=== PATIENT | male | born 1990 | race Caucasian/White ===

== ENCOUNTER 2017-10-10 23:31 | Emergency (ER) | payer SELFPAY ==
--- NOTE | 2017-10-10 23:36 | ER Report ---
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 Patient's not followed up with cardiology in many years. His previous care was in [place]. Presents ambulatory to the ER with 2 days of chest congestion and difficulty breathing. Patient states he Vapes THC. REVIEW OF SYSTEMS: Respiratory: As above Cardiovascular: As above. Gastrointestinal: No vomiting, no abdominal pain. Musculoskeletal: No back pain. Allergies: Coded Allergies: No Known Allergies (Verified Allergy, Unknown, 10/10/17) Home Meds Active Scripts Amoxicillin (AMOXICILLIN) 875 Mg Tablet, 1 TAB PO Q12H for infection, #10 TAB Prov:BRITTANY CAO DO 10/11/17 Reported Medications Aspirin (ASPIR 81) 81 Mg Tablet., 81 MG PO QDAY, TAB 10/10/17 Reviewed Nurses Notes: Yes Old Medical Records Reviewed: Yes Constitutional Vital Sign - Last 24 Hours 10/10/17 10/10/17 10/10/17 10/11/17 23:34 23:34 23:40 00:05 Temp 97.5 Pulse 89 80 80 Resp 15 14 12 B/P (MAP) 170/107 170/101 (124) 152/77 (102) Pulse Ox 85 85 92 O2 Delivery Room Air Room Air Nasal Cannula O2 Flow Rate 2.0 2 10/11/17 10/11/17 10/11/17 00:10 00:20 00:40 Pulse 82 78 Resp 12 9 B/P (MAP) 113/74 (87) 105/62 (76) Pulse Ox 90 85 O2 Delivery Nasal Cannula Room Air O2 Flow Rate 2 Physical Exam Vital signs stable, afebrile, pulse ox 85% on room air General Appearance: The patient is alert, has no immediate need for airway protection and no current signs of toxicity. Slightly pale appearing, skin warm and dry HEENT: Pupils equal and round no injection. Oropharynx without redness or exudate, mucous. Membranes are moist Respiratory: Chest is non tender, lungs are clear to auscultation. Cardiac: regular rate and rhythm, blowing heart murmur at the left sternal border, well-healed surgical car Gastrointestinal: Abdomen is soft and non tender, no masses, bowel sounds normal. Musculoskeletal: Neck: Neck is supple and non tender. No JVD Extremities have full range of motion and are non tender. No edema, no calf tenderness Skin: No rashes or lesions. DIFFERENTIAL DIAGNOSIS: After history and physical exam differential diagnosis was considered for chest pain including but not limited to myocardial ischemia, pericarditis pulmonary embolus, chest wall pain, pleural inflammation and pulmonary infectious causes. Additionally,shortness of breath including but not limited to pulmonary infectious process, COPD, asthma, pulmonary embolus and congestive heart failure. Medical Decision Making Data Points Result Diagram: 10/10/17 2342 10/10/17 2342 Laboratory Hematology Test 10/10/17 23:42 10/11/17 00:51 Red Blood Count 6.36 M/uL (4.00-5.60) Mean Corpuscular Volume 90.1 fL (80.0-96.0) Mean Corpuscular Hemoglobin 31.1 pg (26.0-33.0) Mean Corpuscular Hemoglobin Concent 34.5 g/dL (32.0-36.0) Red Cell Distribution Width 14.3 % (11.5-14.5) Mean Platelet Volume 10.6 fL (7.2-11.1) Neutrophils (%) (Auto) 81.5 % (39.4-72.5) Lymphocytes (%) (Auto) 10.8 % (17.6-49.6) Monocytes (%) (Auto) 7.1 % (4.1-12.4) Eosinophils (%) (Auto) 0.2 % (0.4-6.7) Basophils (%) (Auto) 0.4 % (0.3-1.4) Nucleated RBC Relative Count (auto) 0.0 /100WBC Neutrophils # (Auto) 9.6 K/uL (2.0-7.4) Lymphocytes # (Auto) 1.3 K/uL (1.3-3.6) Monocytes # (Auto) 0.8 K/uL (0.3-1.0) Eosinophils # (Auto) 0.0 K/uL (0.0-0.5) Basophils # (Auto) 0.1 K/uL (0.0-0.1) Nucleated RBC Absolute Count (auto) 0.00 K/uL Prothrombin Time 13.6 seconds (12.0-14.4) Prothromb Time International Ratio 1.04 Activated Partial Thromboplast Time 29 seconds (23-35) D-Dimer Quantitative (PE/DVT) < 0.27 ug/ml (0-0.50) Sodium Level 144 mmol/L (137-145) Potassium Level 3.7 mmol/L (3.5-5.0) Chloride Level 104 mmol/L (98-107) Carbon Dioxide Level 23 mmol/L (22-30) Blood Urea Nitrogen 17 mg/dl (9-21) Creatinine 1.00 mg/dl (0.66-1.25) Glomerular Filtration Rate Calc > 60.0 Random Glucose 101 mg/dl (75-110) Calcium Level 10.1 mg/dl (8.4-10.2) Total Bilirubin 1.2 mg/dl (0.2-1.3) Aspartate Amino Transf (AST/SGOT) 32 U/L (0-35) Alanine Aminotransferase (ALT/SGPT) 49 U/L (0-56) Alkaline Phosphatase 69 U/L (0-126) Troponin I 0.017 ng/ml B-Type Natriuretic Peptide 103 pg/ml (0-100) Total Protein 9.4 g/dl (6.3-8.2) Albumin 5.7 g/dl (3.5-5.0) Digoxin Level < 0.4 ng/ml Digoxin Last Dose Date unk Digoxin Last Dose Time unk Chemistry Test 10/10/17 23:42 10/11/17 00:51 White Blood Count 11.8 k/uL (4.5-11.0) Red Blood Count 6.36 M/uL (4.00-5.60) Hemoglobin 19.8 g/dL (14.0-18.0) Hematocrit 57.3 % (42.0-52.0) Mean Corpuscular Volume 90.1 fL (80.0-96.0) Mean Corpuscular Hemoglobin 31.1 pg (26.0-33.0) Mean Corpuscular Hemoglobin Concent 34.5 g/dL (32.0-36.0) Red Cell Distribution Width 14.3 % (11.5-14.5) Platelet Count 184 K/uL (150-450) Mean Platelet Volume 10.6 fL (7.2-11.1) Neutrophils (%) (Auto) 81.5 % (39.4-72.5) Lymphocytes (%) (Auto) 10.8 % (17.6-49.6) Monocytes (%) (Auto) 7.1 % (4.1-12.4) Eosinophils (%) (Auto) 0.2 % (0.4-6.7) Basophils (%) (Auto) 0.4 % (0.3-1.4) Nucleated RBC Relative Count (auto) 0.0 /100WBC Neutrophils # (Auto) 9.6 K/uL (2.0-7.4) Lymphocytes # (Auto) 1.3 K/uL (1.3-3.6) Monocytes # (Auto) 0.8 K/uL (0.3-1.0) Eosinophils # (Auto) 0.0 K/uL (0.0-0.5) Basophils # (Auto) 0.1 K/uL (0.0-0.1) Nucleated RBC Absolute Count (auto) 0.00 K/uL Prothrombin Time 13.6 seconds (12.0-14.4) Prothromb Time International Ratio 1.04 Activated Partial Thromboplast Time 29 seconds (23-35) D-Dimer Quantitative (PE/DVT) < 0.27 ug/ml (0-0.50) Glomerular Filtration Rate Calc > 60.0 Calcium Level 10.1 mg/dl (8.4-10.2) Total Bilirubin 1.2 mg/dl (0.2-1.3) Aspartate Amino Transf (AST/SGOT) 32 U/L (0-35) Alanine Aminotransferase (ALT/SGPT) 49 U/L (0-56) Alkaline Phosphatase 69 U/L (0-126) Troponin I 0.017 ng/ml B-Type Natriuretic Peptide 103 pg/ml (0-100) Total Protein 9.4 g/dl (6.3-8.2) Albumin 5.7 g/dl (3.5-5.0) Digoxin Level < 0.4 ng/ml Digoxin Last Dose Date unk Digoxin Last Dose Time unk Coagulation Test 10/10/17 23:42 Prothrombin Time 13.6 seconds Prothromb Time International Ratio 1.04 Activated Partial Thromboplast Time 29 seconds D-Dimer Quantitative (PE/DVT) < 0.27 ug/ml Toxicology Test 10/11/17 00:51 Digoxin Level < 0.4 ng/ml Digoxin Last Dose Date unk Digoxin Last Dose Time unk EKG/Imaging EKG Interpretation 12 lead EK Rhythm: Electronic pacemaker, 90 bpm [place]: QRS: ST segments: , No old EKGs for comparison Imaging X-ray: Two-view chest x-ray was obtained. I viewed the images myself on the PACS system. My interpretation of the images is: Infiltrate, no effusion, borderline cardiomegaly. Pacemaker present in the upper abdomen wires terminating in the heart shadow. The radiologist interpretation had no clinically significant variation from this interpretation. ED Course/Re-evaluation ED Course Patient was admitted to an examination room. H&P was done. The differential diagnoses was considered. On clinical examination. Patient with gross hypoxemia, which is likely chronic. Patient has congenital heart deformity since , status post surgery. Hector procedure. Patient is supposed to be taking digoxin. He's been noncompliant on that. He's been in [place] one year. His 1st we care was difficult for him with significant shortness of br eath and dyspnea on exertion. Patient's now sick with bronchitis for 2 days. He is a productive cough and fevers. It's caused exacerbation of his cardiac condition and worsening of his hypoxia. Diagnostic studies show no obvious evidence of pulmonary embolism, cardiac ischemia or congestive heart failure. Patient advised to resume his digoxin. His level returned at 0. Patient be treated with amoxicillin 875 mg by mouth twice a day. I did offer the patient home oxygen, but he declined. I advised he should follow up with cardiology. Patient states he is unable to keep health insurance with his current situation. Patient advised to return to the ER for any worsening. Decision to Disposition Date: Oct 11, 2017 Decision to Disposition Time: 00:31 Depart Departure Latest Vital Signs Vital Signs Date Time Temp Pulse Resp B/P (MAP) Pulse Ox O2 Delivery O2 Flow Rate FiO2 10/11/17 00:40 78 9 105/62 (76) 85 Room Air 10/11/17 00:10 2 10/10/17 23:34 97.5 Impression: Primary Impression: Hypoxia Additional Impressions: Bronchitis Hypoplastic left heart Pacemaker Polycythemia secondary to hypoxia Condition: Improved Disposition: HOME OR SELF-CARE Referrals: JOE NEWBY MD New Scripts Amoxicillin (AMOXICILLIN) 875 Mg Tablet 1 TAB PO Q12H for infection, #10 TAB Prov: BRITTANY CAO DO 10/11/17 Patient Instructions: Acute Bronchitis (ED) Additional Instructions: Take ibuprofen 200 mg 2-3 tablets 3 times a day with food Follow-up with cardiology as soon as possible Problem Qualifiers BRITTANY CAO DO Oct 10, 2017 23:36
[2017-10-10] MEDS ORDERED: ASPIRIN 81 MG CHEW PO ONE (23:40)
[2017-10-10] MEDS ORDERED: ASPI-1471 PO (23:44)
[2017-10-10 23:58] LABS: PLATELET COUNT, AUTOMATED 184 K/uL (150-450)
[2017-10-11 00:02] LABS: INR 1.04
[2017-10-11] MEDS ORDERED: AMOX875T60 PO (00:32)
[2017-10-11 00:40] VITALS: BP 105/62
[2017-10-11] MEDS ORDERED: AMOXICILLIN 875 MG TAB PO ONE (00:45)
--- NOTE | 2017-10-11 00:50 | EKG ---
[place]AC[place] [facility] [place]IENT NAME: CRISTINE PANDYA : [id number] MR: [id number] V: [id number] EXAM DATE: ORDERING PHYSICIAN: BRITTANY CAO TECHNOLOGIST: JOVITA Test Reason : CP DYSPNEA Blood Pressure : / mmHG Vent. Rate : 090 BPM Atrial Rate : 090 BPM P-R Int : 114 ms QRS Dur : 186 ms QT Int : 412 ms P-R-T Axes : 089 -47 118 degrees QTc Int : 504 ms Electronic ventricular pacemaker No previous ECGs available Confirmed by JOHN MAJANO ([id number]) on 10/11/2017 6:20:02 AM Referred By: Confirmed By:JOHN MAJANO
--- NOTE | 2017-10-11 01:07 | RADIOLOGY IMAGING REPORT ---
FACILITY: [facility] PATIENT NAME: Buck Ocasio : 1990 MR: [id number] V: [id number] EXAM DATE: ORDERING PHYSICIAN: BRITTANY CAO TECHNOLOGIST: Location: [facility] Patient: Buck Ocasio : 1990 Visit/Account:[id number] Date of Sevice: 10/10/2017 CHEST PA AND LAT HISTORY: Chest pain and congestion for 3 days. History of hypoplastic left heart syndrome. COMPARISON: None. TECHNIQUE: PA and lateral views of the chest. FINDINGS: Tubes/lines/hardware: There are sternal closure wires. There is a stimulator battery pack in the uppe r abdomen, and leads terminate at the inferior heart. Surgical clips project in the midline chest. Pulmonary: Lungs are clear. There is no pneumothorax or pleural effusion. Cardiomediastinal: Cardiac and mediastinal silhouettes are within normal limits. Bones/soft tissues: No acute osseous abnormality. The visible abdomen is normal. IMPRESSION: 1. No acute cardiopulmonary process. Report Dictated By: Kaitlin Byrd at 10/11/2017 1:01 AM Report E-Signed By: Kaitlin Byrd at 10/11/2017 1:02 AM WSN:[id number]
== END 2017-10-11 01:00 | disposition home or self-care (01) ==
LOC: ER 23:52
DX: R09.02 Hypoxemia (principal); J40 Bronchitis, not specified as acute or chronic; Q23.4 Hypoplastic left heart syndrome; Z95.0 Presence of cardiac pacemaker; D75.1 Secondary polycythemia
CPT/HCPCS: 71046; 80162; 82040; 82247; 82310; 82374; 82435; 82565; 82947; 83880; 84075; 84132; 84155; 84295; 84450; 84460; 84484; 84520; 85025; 85379; 85610; 85730; 93005; 99283

== ENCOUNTER 2017-10-16 11:12 | Emergency (ER) | payer SELFPAY ==
[~2017-10-16 11:12] MED LIST: AMOX875T60 PO; ASPI-1471 PO
--- NOTE | 2017-10-16 11:16 | ER Report ---
History and Physical Time Seen By MD: 11:16 HPI/ROS CHIEF COMPLAINT: Dyspnea HISTORY OF PRESENT ILLNESS: This is a 26-year-old male who presents to the emergency department with increased dyspnea and left-sided chest discomfort. Patient has a history of hypoplastic left heart syndrome, has had cardiac surgery. Patient also has a pacemaker. Patient was seen here on 10/10/2017 where he was sent home with amoxicillin for bronchitis, encouraged to follow up with cardiology and offered oxygen which he declined. Patient states he has not had any improvement since his last ER visit. Patient has not followed up with cardiology. Patient is from [place] and has been here approximately one year. Patient also vapes THC. Patient has had increased left-sided chest pressure, increased dyspnea or exertional. Did not start his Digitalis as suggested. Patient was found to be in the low 80s on room air, was placed on 5 L nasal cannula, his PO2 up to 89%. Patient has had a little bit of nausea, and feels "clammy". REVIEW OF SYSTEMS: Constitutional: As above. Eyes: No discharge. ENT: No sore throat. Cardiovascular: As above. Respiratory: As above. Gastrointestinal: As above. Genitourinary: No hematuria. Musculoskeletal: No back pain. Skin: No rashes. Neurological: No headache. Allergies: Coded Allergies: No Known Allergies (Verified Allergy, Unknown, 10/10/17) Home Meds Active Scripts Amoxicillin (AMOXICILLIN) 875 Mg Tablet, 1 TAB PO Q12H for infection, #10 TAB Prov:BRITTANY CAO DO 10/11/17 Reported Medications Aspirin (ASPIR 81) 81 Mg Tablet., 81 MG PO QDAY, TAB 10/10/17 Past Medical/Surgical History Patient has a past medical and surgical history of cardiac surgery, hypoplastic left heart syndrome, pacemaker, AICD, smoking marijuana. Reviewed Nurses Notes: Yes Hx Substance Use Disorder: Yes (SMOKES POT) Hx Alcohol Use: No Constitutional Vital Sign - Last 24 Hours 10/16/17 10/16/17 10/16/17 10/16/17 11:13 11:19 11:20 11:27 Temp 97.8 Pulse 80 101 Resp 20 B/P (MAP) 130/95 130/95 (107) Pulse Ox 97 86 O2 Delivery Nasal Cannula O2 Flow Rate 5.0 10/16/17 10/16/17 10/16/17/4/18 11:42 11:57 12:08 12:12 Pulse 96 ??? 75 B/P (MAP) 132/76 (94) Pulse Ox 88 91 10/16/17 10/16/17 10/16/17 10/16/17 12:17 12:30 12:32 12:37 Pulse 75 75 88 B/P (MAP) 126/77 (93) Pulse Ox 92 92 90 10/16/17 10/16/17 10/16/17 10/16/17 12:52 13:00 13:00 13:07 Pulse 100 ??? Resp 18 B/P (MAP) 133/83 (100) Pulse Ox 87 85 10/16/17 10/16/17 10/16/17 13:22 13:30 13:37 Pulse 78 70 B/P (MAP) 135/84 (101) Pulse Ox 92 91 Physical Exam General Appearance: The patient is alert, has no immediate need for airway protection and no signs of toxicity, pale. Eyes: Pupils equal and round no pallor or injection. ENT, Mouth: Mucous membranes are moist. Respiratory: There are no retractions, lungs are clear to auscultation. Cardiovascular: Regular rate and rhythm, grade 3-4 systolic murmur. No clicks or rubs. Gastrointestinal: Abdomen is soft and non tender, no masses, bowel sounds normal. Neurological: Alert and oriented 4. Moving all extremity is. Following all commands. No focal neuro deficits. Skin: Warm and dry, no rashes. Musculoskeletal: Neck is supple non tender. Extremities are nontender, nonswollen and have full range of motion. DIFFERENTIAL DIAGNOSIS: After history and physical exam differential diagnosis was considered for chest pain including but not limited to myocardial ischemia, pericarditis pulmonary embolus, chest wall pain, pleural inflammation and pulmonary infectious causes.shortness of breath including but not limited to pulmonary infectious process, COPD, asthma, pulmonary embolus and congestive heart failure. Medical Decision Making Data Points Result Diagram: 10/16/17 1148 10/16/17 1148 Laboratory Hematology Test 10/16/17 11:48 Red Blood Count 6.27 M/uL (4.00-5.60) Mean Corpuscular Volume 91.9 fL (80.0-96.0) Mean Corpuscular Hemoglobin 30.9 pg (26.0-33.0) Mean Corpuscular Hemoglobin Concent 33.7 g/dL (32.0-36.0) Red Cell Distribution Width 14.1 % (11.5-14.5) Mean Platelet Volume 10.1 fL (7.2-11.1) Neutrophils (%) (Auto) 79.7 % (39.4-72.5) Lymphocytes (%) (Auto) 11.4 % (17.6-49.6) Monocytes (%) (Auto) 8.2 % (4.1-12.4) Eosinophils (%) (Auto) 0.3 % (0.4-6.7) Basophils (%) (Auto) 0.4 % (0.3-1.4) Nucleated RBC Relative Count (auto) 0.1 /100WBC Neutrophils # (Auto) 5.4 K/uL (2.0-7.4) Lymphocytes # (Auto) 0.8 K/uL (1.3-3.6) Monocytes # (Auto) 0.6 K/uL (0.3-1.0) Eosinophils # (Auto) 0.0 K/uL (0.0-0.5) Basophils # (Auto) 0.0 K/uL (0.0-0.1) Nucleated RBC Absolute Count (auto) 0.01 K/uL Sodium Level 145 mmol/L (137-145) Potassium Level 3.5 mmol/L (3.5-5.0) Chloride Level 107 mmol/L (98-107) Carbon Dioxide Level 21 mmol/L (22-30) Blood Urea Nitrogen 21 mg/dl (9-21) Creatinine 0.90 mg/dl (0.66-1.25) Glomerular Filtration Rate Calc > 60.0 Random Glucose 137 mg/dl (75-110) Calcium Level 9.7 mg/dl (8.4-10.2) Total Bilirubin 1.7 mg/dl (0.2-1.3) Aspartate Amino Transf (AST/SGOT) 38 U/L (0-35) Alanine Aminotransferase (ALT/SGPT) 42 U/L (0-56) Alkaline Phosphatase 55 U/L (0-126) Troponin I < 0.012 ng/ml B-Type Natriuretic Peptide 306 pg/ml (0-100) Total Protein 8.2 g/dl (6.3-8.2) Albumin 5.3 g/dl (3.5-5.0) Chemistry Test 10/16/17 11:48 White Blood Count 6.8 k/uL (4.5-11.0) Red Blood Count 6.27 M/uL (4.00-5.60) Hemoglobin 19.4 g/dL (14.0-18.0) Hematocrit 57.6 % (42.0-52.0) Mean Corpuscular Volume 91.9 fL (80.0-96.0) Mean Corpuscular Hemoglobin 30.9 pg (26.0-33.0) Mean Corpuscular Hemoglobin Concent 33.7 g/dL (32.0-36.0) Red Cell Distribution Width 14.1 % (11.5-14.5) Platelet Count 167 K/uL (150-450) Mean Platelet Volume 10.1 fL (7.2-11.1) Neutrophils (%) (Auto) 79.7 % (39.4-72.5) Lymphocytes (%) (Auto) 11.4 % (17.6-49.6) Monocytes (%) (Auto) 8.2 % (4.1-12.4) Eosinophils (%) (Auto) 0.3 % (0.4-6.7) Basophils (%) (Auto) 0.4 % (0.3-1.4) Nucleated RBC Relative Count (auto) 0.1 /100WBC Neutrophils # (Auto) 5.4 K/uL (2.0-7.4) Lymphocytes # (Auto) 0.8 K/uL (1.3-3.6) Monocytes # (Auto) 0.6 K/uL (0.3-1.0) Eosinophils # (Auto) 0.0 K/uL (0.0-0.5) Basophils # (Auto) 0.0 K/uL (0.0-0.1) Nucleated RBC Absolute Count (auto) 0.01 K/uL Glomerular Filtration Rate Calc > 60.0 Calcium Level 9.7 mg/dl (8.4-10.2) Total Bilirubin 1.7 mg/dl (0.2-1.3) Aspartate Amino Transf (AST/SGOT) 38 U/L (0-35) Alanine Aminotransferase (ALT/SGPT) 42 U/L (0-56) Alkaline Phosphatase 55 U/L (0-126) Troponin I < 0.012 ng/ml B-Type Natriuretic Peptide 306 pg/ml (0-100) Total Protein 8.2 g/dl (6.3-8.2) Albumin 5.3 g/dl (3.5-5.0) EKG/Imaging EKG Interpretation 12 lead EKG: Time EKG of 28. Rhythm: Electronic ventricular paced rhythm, 94 bpm. [place]: normal QRS: normal ST segments: normal [ ] Imaging Location: [facility] [place] Patient: Buck Ocasio : 1990 Visit/Account:[id number] Date of Sevice: 10/16/2017 2 VIEWS CHEST INDICATION: Chest pain. COMPARISON: 10/11/2017. FINDINGS: Cardiomediastinal silhouette and pulmonary vessels within normal limits. Sterno fritz changes. Surgical clips seen in the upper mediastinum on the lateral view and unchanged. There is no focal infiltrate or lobar consolidation. There is no pneumothorax or pleural effusion. No nodule. Upper abdomen is unremarkable with a electronic device present and unchanged. The wires from the device extend to the inferior heart which is unchanged. IMPRESSION: 1. No acute cardiopulmonary process. Report Dictated By: Gray Agarwal at 10/16/2017 12:22 PM Report E-Signed By: Gray Agarwal at 10/16/2017 12:24 PM WSN:[id number] ED Course/Re-evaluation Clinical Indication for ER IV: Hydration, IV Access ED Course The patient was admitted to room. A history and physical were obtained. Differential diagnoses were considered. An IV was started. A CBC, CMP, troponin and BNP were obtained. Patient was given a 500 ml NS bolus. CBC basically unchanged from previous blood work, no significant changes in the chemistry, BNP from 103 to 306. H&H 19.4, 57.6, similar to the previous studies, polycythemia likely secondary to elevation and chronic hypoxia. I did review the laboratory studies with the patient as well as the negative chest x-ray. Patient states feeling much better on the oxygen. The patient I had a long conversation regarding his past medical history and his current living situation and the elevation which seems to be having a negative effect on his cardiovascular system. Patient did express understanding, he states he is actually packed and ready to move to a lower elevation. I also recommended oxygen, the patient has agreed to wear oxygen until he the descends to a lower elevation. The patient had no other questions or concerns at this time and was discharged home. Patient was also encouraged to return to ER or follow up in the nurse's emergency department on his trip back to [place]. 10/16/2017 2:14:45 pm the patient was set up with home oxygen. No other complaints or concerns at the time of discharge. Decision to Disposition Date: Oct 16, 2017 Decision to Disposition Time: 14:07 Depart Departure Latest Vital Signs Vital Signs Date Time Temp Pulse Resp B/P (MAP) Pulse Ox O2 Delivery O2 Flow Rate FiO2 10/16/17 13:37 70 91 10/16/17 13:30 135/84 (101) 10/16/17 13:00 18 10/16/17 11:20 5.0 10/16/17 11:13 97.8 Nasal Cannula Impression: Primary Impression: Pacemaker Additional Impressions: Hypoplastic left heart Hypoxia Condition: Improved Disposition: HOME OR SELF-CARE Departure Forms: ER Transition Record, Home Oxygen, Nebulizer RX, Home Oxygen Company Chosen by Patient: [employer] [facility] Equipment-Oxygen: Oxygen Concentrator, Portable Oxygen Gas Reason for Use/Diagnosis: Hx of hypoplastic left heart, dyspnea with oxygen at 85% on room air. Start Date of the Order: Oct 16, 2017 Dosage or Concentration (if applicable) - LPM: 22 Route of Administration (if applicable): Nasal Cannula, Other Frequency of Use: Continuous Duration Home O2 Required: 30 Duration Units: Days Room Air Oxygen Saturation: 85 ER Prescribing Physician's Name: Other NPI Numbers for Local ER MDs: Other Medications Reconciliation, Patient Portal Information Patient Instructions: Hypoxia (ED), Using Oxygen at Home (ED) Additional Instructions: You will be set up with home oxygen, please use this continuously until you descend to a lower elevation. When you return to [place], please follow up with your tie layer as soon as possible. Drink plenty of water. Get plenty of rest. If you develop increased shortness of breath, or chest pain follow up in the nearest emergency department for reevaluation. Return to the ER for any other concerns or worsening symptoms. Problem Qualifiers [employer] MANAGER-BC Oct 16, 2017 11:15
[2017-10-16] MEDS ORDERED: NS(*) 0.9% 500 ML BAG 500 ML IV ONE (11:31)
[2017-10-16] MEDS ORDERED: ONDANSETRON 4 MG/2 ML VIAL IVP ONE (11:35)
[2017-10-16] MEDS ORDERED: ASPIRIN 81 MG CHEW PO ONE (11:35)
--- NOTE | 2017-10-16 11:40 | EKG ---
FACILITY: [facility] PATIENT NAME: CRISTINE PANDYA : [id number] MR: [id number] V: [id number] EXAM DATE: ORDERING PHYSICIAN: CONG POPE TECHNOLOGIST: Test Reason : dysnea, chest tightness Blood Pressure : / mmHG Vent. Rate : 094 BPM Atrial Rate : 094 BPM P-R Int : 160 ms QRS Dur : 186 ms QT Int : 420 ms P-R-T Axes : 049 -86 113 degrees QTc Int : 525 ms Electronic ventricular pacemaker When compared with ECG of 10-OCT-2017 23:50, Vent. rate has increased BY 4 BPM Confirmed by Darren Ziegler ([id number]) on 10/16/2017 4:54:22 PM Referred By: Confirmed By:Darren Villarreal
[2017-10-16 12:00] LABS: PLATELET COUNT, AUTOMATED 167 K/uL (150-450)
--- NOTE | 2017-10-16 12:26 | RADIOLOGY IMAGING REPORT ---
[facility] PATIENT NAME: Buck Ocasio : 1990 MR: [id number] V: [id number] EXAM DATE: ORDERING PHYSICIAN: CONG POPE TECHNOLOGIST: Location: [facility] Patient: Buck Ocasio : 1990 Visit/Account:[id number] Date of Sevice: 10/16/2017 2 VIEWS CHEST INDICATION: Chest pain. COMPARISON: 10/11/2017. FINDINGS: Cardiomediastinal silhouette and pulmonary vessels within normal limits. Sternotomy changes. Surgical clips seen in the upper mediastinum on the lateral view and unchanged. There is no focal infiltrate or lobar consolidation. There is no pneumothorax or pleural effusion. No nodule. Upper abdomen is unremarkable with a electronic device present and unchanged. The wires from the zayda ce extend to the inferior heart which is unchanged. IMPRESSION: 1. No acute cardiopulmonary process. Report Dictated By: Gray Agarwal at 10/16/2017 12:22 PM Report E-Signed By: Gray Agarwal at 10/16/2017 12:24 PM WSN:[id number]
[2017-10-16 14:00] VITALS: BP 140/86
== END 2017-10-16 14:23 | disposition home or self-care (01) ==
LOC: ER 11:16
DX: Q23.4 Hypoplastic left heart syndrome (principal); Z95.0 Presence of cardiac pacemaker; R09.02 Hypoxemia; T70.29XA Other effects of high altitude, initial encounter
CPT/HCPCS: 36415; 71046; 83880; 84484; 85025; 93005; 96360; 99284; J2405; J7040; 82040; 82247; 82310; 82374; 82435; 82565; 82947; 84075; 84132; 84155; 84295; 84450; 84460; 84520